=== PATIENT | female | born 1985 | race Caucasian/White ===

== ENCOUNTER 2024-05-29 00:27 | Emergency (ER) | payer OTHER ==
[2024-05-29] MEDS ORDERED: AZITHROMYCIN 250 MG TAB ONE (01:02)
[2024-05-29 01:06] LABS: Absolute Basophils 0.1 K/uL (0-0.5); Absolute Eosinophils 0.4 K/uL (0-0.5); Absolute Lymphocytes (CBC) 3.9 K/uL (0.7-4.9); Absolute Monocytes 0.9 K/uL (0.1-1.3); Absolute Neutrophil 5.5 K/uL (1.8-8.0); Basophils % 0.8 % (0-1.3); Eosinophils % 3.9 % (0-4.4); Hematocrit 37.4 % (36.0-45.0); Hemoglobin 12.7 g/dL (12.0-15.0); Lymphocytes % 35.6 % (15.3-44.8); MCH 27.1 pg (27.0-35.0); MCHC 33.9 g/dL (32.0-36.0); MCV 79.9 fL (80-100); MPV 7.4 fL (7.6-11.3); Monocytes % 8.5 % (3.3-12.3); Neutrophils % 51.2 % (41.7-73.7); Nucleated Red Blood Cells % 0.1 % (0-0); Platelets 242 thou/uL (152-406); RBC Red Blood Cell Count 4.68 M/uL (3.86-4.86); Red Cell Distribution Width 15.4 % (12.1-15.2)
[2024-05-29 01:26] LABS: Anion Gap 9.6 mEq/L (5.0-15.0); Potassium 3.6 mEq/L (3.5-5.1)
--- NOTE | 2024-05-29 01:37 | ER ---
Nurse's Notes [facility] Name: Magda Encinas Age: 38 yrs Sex: Female : 1985 Arrival Date: 05/29/2024 Time: 00:27 Bed 4 Private MD: Diagnosis: Chronic sinusitis, unspecified;Allergic contact dermatitis due to drugs in contact with skin Presentation: 05/29 00:44 Chief complaint: Patient states: I think I may be having an allergic reaction. I have bm8 been taking benadryl but it doesn't seem to be getting any better. My cough is so much worse than normal. Coronavirus screen: Vaccine status: Patient reports being unvaccinated. At this time, the client does not indicate any symptoms associated with coronavirus-19. Ebola Screen: Patient negative for fever greater than or equal to 101.5 degrees Fahrenheit, and additional compatible Ebola Virus Disease symptoms Patient denies exposure to infectious person. Patient denies travel to an Ebola-affected area in the 21 days before illness onset. No symptoms or risks identified at this time. Initial Sepsis Screen: Does the patient meet any 2 criteria? No. Patient's initial sepsis screen is negative. Does the patient have a suspected source of infection? No. Patient's initial sepsis screen is negative. Risk Assessment: Do you want to hurt yourself or someone else? Patient reports no desire to harm self or others. Onset of symptoms was May 26, 2024. 00:44 Method Of Arrival: Ambulatory bm8 00:44 Acuity: PAT 3 bm8 Triage Assessment: 00:46 General: Appears in no apparent distress. uncomfortable, Behavior is calm, cooperative, bm8 appropriate for age. Pain: Complains of pain in chest Pain currently is 6 out of 10 on a pain scale. EENT: No deficits noted. No signs and/or symptoms were reported regarding the EENT system. Neuro: No deficits noted. Level of Consciousness is awake, alert, obeys commands, Oriented to person, place, time, situation, Appropriate for age. Cardiovascular: Reports chest pain, from cough Heart tones S1 S2 present Capillary refill < 3 seconds in bilateral fingers Patient's skin is warm and dry. Respiratory: Reports cough that is non-productive, persistent pain with cough Airway is patent Trachea midline Respiratory effort is even, unlabored, Respiratory pattern is regular, symmetrical, Breath sounds are clear bilaterally. GI: No signs and/or symptoms were reported involving the gastrointestinal system. : No signs and/or symptoms were reported regarding the genitourinary system. Derm: Rash noted that is itchy, red, raised, urticaria, on chest, abdomen, right arm and left arm Parent/caregiver reports the patient having burning, itching. Musculoskeletal: No signs and/or symptoms reported regarding the musculoskeletal system. 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 - Infectious Disease History:: Denies. - Social history:: Smoking status: Patient/guardian denies using alcohol, street drugs. Screenin: [facility] ED Fall Risk Assessment (Adult) History of falling in the last 3 months, bm8 including since admission No falls in past 3 months (0 pts) Confusion or Disorientation No (0 pts) Intoxicated or Sedated No (0 pts) Impaired Gait Yes (1 pt) Mobility Assist Device Used Yes (1 pt) Altered Elimination No (0 pt) Score/Fall Risk Level 0 - 2 = Low Risk Oriented to surroundings, Maintained a safe environment, Educated pt \\T\\ family on fall prevention, incl call for assistance when getting out of bed, Assessed \\T\\ reinforced patient's understanding of fall precautions, Hourly rounding (assess needs \\T\\ fall precautionary measures) done, Used ambulatory aids as needed (educated on \\T\\ assisted with), Used gait belt as appropriate. Abuse screen: Denies threats or abuse. Nutritional screening: No deficits noted. Tuberculosis screening: No symptoms or risk factors identified. Assessment: :57 Reassessment: Patient appears in no apparent distress at this time. Patient and/or bm8 family updated on plan of care and expected duration. Pain level reassessed. Patient is alert, oriented x 3, equal unlabored respirations, skin warm/dry/pink. Patient denies pain at this time. Patient states feeling better. Vital Signs: 00:44 BP 157 / 91; Pulse 82; Resp 19; Temp 97.7; Pulse Ox 99% ; Weight 156.49 kg; Height 5 bm8 ft. 4 in. ; Pain 6/10; 01:57 BP 103 / 53; Pulse 58; Resp 18; Temp 97.7; Pulse Ox 100% ; Pain 0/10; bm8 00:44 Body Mass Index 59.22 (156.49 kg, 162.56 cm) bm8 00:44 Pain Scale: Adult bm8 01:57 Pain Scale: Adult bm8 [place] Coma Score: 01:57 Eye Response: spontaneous(4). Motor Response: obeys commands(6). Verbal Response: bm8 oriented(5). Total: 15. ED Course: 00:30 Patient arrived in ED. [email or web address] 00:33 Fausto Bonilla MD is Attending Physician. ec2 00:44 Javier Arboleda, RN is Primary Nurse. bm8 00:46 Triage completed. bm8 00:46 Arm band placed on right wrist. bm8 00:52 Inserted saline lock: 20 gauge in left antecubital area, using aseptic technique. Blood vk collected. Flushed with 10 mL NS. 00:53 Initial lab(s) drawn, by me, sent to lab. vk 00:53 BNP Sent. vk 00:53 BMP Sent. vk 00:53 CBC with Diff Sent. vk 01:00 CXR XRAY In Process Unspecified. EDMS 01:57 Patient has correct armband on for positive identification. Bed in low position. Call bm8 light in reach. Side rails up X 1. Provided Education on: post er care. Client placed on continuous cardiac and pulse oximetry monitoring. NIBP monitoring applied. Pulse ox on. NIBP on. Door closed. Noise minimized. Warm blanket given. Pillow given. Verbal reassurance given. Head of bed elevated. 01:57 No provider procedures requiring assistance completed. IV discontinued, intact, bm8 bleeding controlled, No redness/swelling at site. Pressure dressing applied. Administered Medications: 00:49 CANCELLED (Physician Discretion): amoxicillin- mg PO once ec2 01:04 Drug: AZITHromycin PO 500 mg PO once Route: PO; bm8 01:59 Follow up: Response: No adverse reaction bm8 Medication: 01:57 VIS not applicable for this client. bm8 Outcome: 01:36 Discharge ordered by . [email or web address] 01:57 Discharged to home ambulatory, bm8 01:57 Condition: stable 01:57 Discharge instructions given to patient, family, Instructed on discharge instructions, follow up and referral plans. Demonstrated understanding of instructions, follow-up care, medications, Prescriptions given X 1, 01:59 Patient left the ED. bm8 Signatures: Dispatcher [employer] EDDeysi Bejarano [email or web address] Fausto Bonilla MD MD ec2 Janae Renee Brad, RN RN bm8
--- NOTE | 2024-05-29 01:37 | EDPHYS ---
Physician Documentation [facility] Name: Magda Encinas Age: 38 yrs Sex: Female : 1985 Arrival Date: 05/29/2024 Time: 00:27 Bed 4 Private MD: ED Physician Fausto Bonilla HPI: 05/29 00:49 This 38 yrs old Female presents to ER via Ambulatory with complaints of ec2 Cough, Chest Congestion. 00:49 Patient arrives today for chronic cough. Patient reports that she has a chronic cough, ec2 states that she was recently treated for sinus infection with azithromycin and had subsequently improved however has not worsened. No fevers or chills. Also reports a rash to the upper chest after applying Vicks vapor rub.. 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 - Infectious Disease History:: Denies. - Social history:: Smoking status: Patient/guardian denies using alcohol, street drugs. ROS: 00:50 Constitutional: as per hpi ec2 Exam: 00:50 Constitutional: GEN: NAD Head: atraumatic Eyes: EOMI Ears: External ears are ec2 normal. CV: regular rate LUNGS: no respiratory distress, no wheezes or rales or rhonchi. Frequent cough noted. ABD: non-distended SKIN: erythematous rash noted to the upper chest wall MSK: no evidence of trauma Vital Signs: 00:44 BP 157 / 91; Pulse 82; Resp 19; Temp 97.7; Pulse Ox 99% ; Weight 156.49 kg; Height 5 bm8 ft. 4 in. ; Pain 6/10; 01:57 BP 103 / 53; Pulse 58; Resp 18; Temp 97.7; Pulse Ox 100% ; Pain 0/10; bm8 00:44 Body Mass Index 59.22 (156.49 kg, 162.56 cm) bm8 00:44 Pain Scale: Adult bm8 01:57 Pain Scale: Adult bm8 [place] Coma Score: 01:57 Eye Response: spontaneous(4). Motor Response: obeys commands(6). Verbal Response: bm8 oriented(5). Total: 15. MDM: 00:41 Medical Screening Exam initiated ec2 00:51 Data reviewed: vital signs, nurses notes. ED course: Patient arrives today for ec2 evaluation of frequent cough and skin rash. Examination yields contact dermatitis on the upper chest wall, frequent cough with a reassuring cardiopulmonary examination otherwise. Will obtain lab work, chest x-ray and treat with azithromycin. Suspect sequela of patient's chronic cough, suspect contact dermatitis given recent contact with Vicks vapor rub to the upper chest wall.. 01:36 ED course: CBC reassuring, metabolic profile nonactionable, BNP minimally elevated. ec2 Chest x-ray shows no acute thoracic process. On reassessment patient remains well-appearing no acute distress. Will discharge home, will start the patient azithromycin given the patient's chronic sinusitis. Instructed patient on no longer use infective rub on her chest wall as I suspect contact dermatitis and this. Return precautions given.. 05/29 00:48 Order name: CBC with Diff; Complete Time: 01:34 ec2 05/29 00:48 Order name: BMP; Complete Time: :34 ec2 05/29 00:48 Order name: BNP; Complete Time: :34 ec2 05/29 00:48 Order name: CXR XRAY ec2 05/29 00:48 Order name: IV; Complete Time: 00:51 ec2 Administered Medications: 00:49 CANCELLED (Physician Discretion): amoxicillin-hvhanjnphtd719 mg PO once ec2 01:04 Drug: AZITHromycin PO 500 mg PO once Route: PO; bm8 01:59 Follow up: Response: No adverse reaction bm8 Disposition Summary: 05/29/24 01:36 Discharge Ordered Notes: Location: Home ec2 Condition: Stable ec2 Diagnosis - Chronic sinusitis, unspecified ec2 - Allergic contact dermatitis due to drugs in contact with skin ec2 Followup: ec2 - With: Private Physician - When: - Reason: Re-evaluation by your physician Discharge Instructions: - Discharge Summary Sheet ec2 - Contact Dermatitis ec2 Forms: - Medication Reconciliation Form ec2 - Antibiotic Education ec2 - Prescription Opioid Use ec2 - Patient Portal Instructions ec2 - Leadership Thank You Letter ec2 Prescriptions: - Zithromax Z-Jus 250 mg Oral Tablet - take 1 tablet ORAL route as directed for 5 days Day 1 - take two (2) tablets ec2 one time. Day 2, 3, 4 , 5 take one (1) tablet once daily.; 6 tablet; Refills: 0, Product Selection Permitted Signatures: Dispatcher [employer] EDVT Fausto Bonilla MD MD ec2 Javier Arboleda RN RN bm8 Corrections: (The following items were deleted from the chart) 00:49 00:49 Amoxicillin-Clavulanate PO 875 mg PO once ordered. ec2 ec2 00:51 00:50 Constitutional: GEN: NAD Head: atraumatic Eyes: EOMI Ears: External ears are ec2 normal. CV: regular rate LUNGS: no respiratory distress, no wheezes or rales or rhonchi. Frequent cough noted. ABD: non-distended SKIN: no evidence of rashes MSK: no evidence of trauma ec2
--- NOTE | 2024-05-29 02:05 | RAD REPORT ---
EXAM DESCRIPTION: Chest Single View CLINICAL HISTORY: 38 years Female, COUGH TECHNIQUE: 1 view (Single frontal view of the chest) COMPARISON: 06/28/2023 FINDINGS: LINES AND TUBES: None. CARDIOVASCULAR STRUCTURES: Normal heart size. No pulmonary venous congestion. LUNGS: No confluent areas of acute consolidation. PLEURA: No layering pleural effusions. No pneumothorax. BONES: No acute osseous abnormality of the thorax. IMPRESSION: 1. No acute cardiopulmonary disease. Electronically signed by: Mandeep Nguyen MD 05/29/2024 01:13 AM CDT RP N Due to temporary technical issues with the [employer] reporting system, reports are being westley d by the in-house radiologist without review as a courtesy to ensure prompt reporting. The interpreting radiologist is fully responsible for the content of the report. Transcribed Date/Time: 05/29/2024 2:05 AM
[2024-05-29 02:24] VITALS: TEMP 97.7
[2024-05-29 02:26] VITALS: BP 103/53; O2SAT 100
== END 2024-05-29 01:59 | disposition home or self-care (01) ==
LOC: ER 00:27
DX: J32.9 Chronic sinusitis, unspecified (principal); L23.3 Allergic contact dermatitis due to drugs in contact with skin
CPT/HCPCS: 36415; 71045; 80048; 83880; 85025; 99284

== ENCOUNTER 2024-12-28 10:17 | Emergency (ER) | payer OTHER ==
--- OUTSIDE RECORDS SUMMARY | 2024-12-28 10:26 | XMS REPORT | Continuity of Care Document ---
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 TABLET(S) BY MOUTH TWICE A DAY. Dara lambert Cholecalcif taylor (Vitamin D) 125 MCG (5000 UT) oral Capsule 2023-03 15:04: 49 Yes [id number] Take by mouth Twice a week. Dara lambert Trazodone HCl 100 MG oral Tablet 2023-03 15:04: 49 Yes [id number] 100mg QD Take 1 tablet (100 mg total) by mouth nightly as needed for sleep. Dara lambert Sucralfate 1 g oral Tablet 2023-03 15:04: 49 Yes [id number] 1g Q.5D Take 1 tablet (1 g total) by mouth 2 times daily. Dara lambert Crisaborole (Eucrisa) 2 % apply externally Ointment 2023-03 15:04: 49 Yes [id number] 1{appli cation} Q.5D Apply 1 Applicatio n topically 2 times daily. Dara lambert Triamcinolo ne Acetonide (KENALOG) 40 mg/mL 2023-03 15:04: 38 No [id number] 40mg Dara lambert Esomeprazol e Magnesium 40 MG oral Delayed Release Capsule 2023-03 00:00: 00 Yes [id number] 40mg Take 1 capsule (40 mg total) by mouth every morning (before breakfast) . Dara lambert Famotidine (Pepcid) 40 MG oral Tablet 2023-03 00:00: 00 Yes [id number] 40mg Q.5D Take 1 tablet (40 mg total) by mouth 2 times daily. Dara lambert Thyroid (Pillow Thyroid) 240 MG oral Tablet 2023-03 00:00: 00 Yes [id number] One pill every Friday through Friday and 1/2 tablet every Friday.. Dara lambert Cetirizine (ZYRTEC) 10 MG oral Tablet 2023-03 00:00: 00 Yes [id number] 10mg QD TAKE ONE (1) TABLET(S) BY MOUTH ONCE A DAY. Dara lambert Triamcinolo ne Acetonide (KENALOG) 40 mg/mL 2023-03 15:59: 58 No [id number] 40mg 40 mg, intramuscu lar, ONCE, On Fri01/06/24 at 1600, For 1 dose Dara lambert Famotidine (Pepcid) 40 MG oral Tablet 2023-03 00:00: 00 Yes [id number] 40mg Q.5D Take 1 tablet (40 mg total) by mouth 2 times daily. Dara lambert Esomeprazol e Magnesium 40 MG oral Delayed Release Capsule 2023-03 00:00: 00 Yes [id number] 40mg Take 1 capsule (40 mg total) by mouth every morning (before breakfast) . Dara lambert Cetirizine (ZyrTEC Allergy) 10 MG oral Tablet 2023-03 00:00: 00 Yes [id number] 10mg QD Take 1 tablet (10 mg total) by mouth daily. Dara lambert Benzonatate (Tessalon Perles) 100 MG oral Capsule 2023-03 00:00: 00 Yes [id number] 100mg Q.[id number] 3D Take 1 capsule (100 mg total) by mouth 3 times daily as needed for cough. Dara lambert Montelukast (SINGULAIR) 10 MG oral Tablet tablet Montelukast (SINGULAIR) 10 MG oral Tablet tablet 2023-03 00:00: 00 11-09 00:00 :00 No [id number] 10mg QD Take 1 tablet (10 mg total) by mouth nightly. Dara lambert predniSONE (DELTASONE) 10 MG oral tablet 2023-03 00:00: 00 02-04 00:00 :00 No [id number] One pill twice daily for 7 days then one pill daily for 7 days. Dara lambert Azithromyci n 250 MG oral Tablet 2023-03 00:00: 00 01-11 04:59 :00 No [id number] Take 2 tablets by mouth on day 1 then 1 tablet by mouth daily for 4 days thereafter .. Dara lambert Buprenorphi ne HCl-Naloxon e HCl 8-2 MG sublingual SL Tab 2023-03 0- 00:00: 00 Yes [id number] 1{tbl} Q.00508474 [id number] 3D Place 1 tablet under the tongue every 8 hours. Dara lambert Docusate Sodium 100 MG oral Capsule 2023-03 018 00:00: 00 Yes 100mg Q.5D take one (1) capsule(s) by mouth twice a day. Dara lambert Topiramate (Topamax) 25 MG oral Tablet 2023-0316 00:00: 00 Yes [id number] 50mg Q.5D Take 2 tablets (50 mg total) by mouth 2 times daily No driving. No alcohol. No operating machinery. . Dara lambert Pregabalin 100 MG oral Capsule 2023-03 00:00: 00 Yes [id number] 100mg Q.[id number] 3D take one (1) capsule(s) by mouth three times a day. Dara lambert Tizanidine HCl 4 MG oral Tablet 2023-03 00:00: 00 02-17 00:00 :00 No [id number] 4mg Q.26577823 [id number] 3D Take 1 tablet (4 mg total) by mouth every 8 hours as needed for muscle spasms. Dara lambert Cholecalcif taylor (Vitamin D) 125 MCG (5000 UT) oral Capsule 2023-03 14:32: 44 Yes [id number] Take by mouth Twice a week. Dara lambert Trazodone HCl 100 MG oral Tablet 2023-03 14:32: 44 Yes [id number] 100mg QD Take 1 tablet (100 mg total) by mouth nightly as needed for sleep. Dara lambert Sucralfate 1 g oral Tablet 2023-03 010 14:32: 44 Yes [id number] 1g Q.5D Take 1 tablet (1 g total) by mouth 2 times daily. Dara lambert Crisaborole (Eucrisa) 2 % apply externally Ointment 2023-03 14:32: 44 Yes [id number] 1{appli cation} Q.5D Apply 1 Applicatio n topically 2 times daily. Dara lambert levoFLOXaci n (Levaquin) 750 MG oral Tablet 2023-03 00:00: 00 01-05 00:00 :00 No [id number] 750mg QD Take 1 tablet (750 mg total) by mouth daily. Dara lambert Pseudoeph-B romphen-DM 30-2-10 MG/5ML oral Syrup 2023-03 00:00: 00 01-05 00:00 :00 No [id number] 10mL Q.25D Take 10 mL by mouth 4 times daily as needed. Dara lambert Buprenorphi ne HCl-Naloxon e HCl 8-2 MG sublingual SL Tab 12-08 00:00: 00 12-30 00:00 :00 No [id number] 1{tbl} Q.59430606 [id number] 3D Place 1 tablet under the tongue every 8 hours. Dara lambert Thyroid (Pillow Thyroid) 240 MG oral Tablet 12-05 00:00: 00 Yes [id number] 1{tbl} QD Take 1 tablet by mouth daily. Dara lambert Pregabalin 100 MG oral Capsule 11-25 00:00: 00 Yes [id number] 100mg Q.73187407 [id number] 3D take one (1) capsule(s) by mouth three times a day. Dara lambert Guaifenesin (Mucinex) 600 MG oral Tablet 12 Hour Sustained Release Guaifenesin (Mucinex) 600 MG oral Tablet 12 Hour Sustained Release 11-24 00:00: 00 Yes [id number] 1200mg Q.5D Take 2 tablets (1,200 mg total) by mouth 2 times daily. Dara lambert Pseudoeph-B romphen-DM 30-2-10 MG/5ML oral Syrup 11-24 00:00: 00 01-05 00:00 :00 No [id number] 10mL Q.25D Take 10 mL by mouth 4 times daily as needed. Dara lambert Benzonatate (Tessalon Perles) 100 MG oral Capsule 11-24 00:00: 00 01-05 00:00 :00 No [id number] 100mg Q.34546300 [id number] 3D Take 1 capsule (100 mg total) by mouth 3 times daily as needed for cough. Dara lambert Amoxicillin -Pot Clavulanate 875-125 MG oral Tablet 11-24 00:00: 00 12-21 00:00 :00 No [id number] 1{tbl} Q.5D Take 1 tablet by mouth 2 times daily. Dara lambert Ondansetron (ZOFRAN) 4 MG oral TABLET DISPERSIBLE 11-10 00:00: 00 Yes [id number] 4mg Q.47999709 [id number] 3D TAKE ONE (1) TABLET(S) BY MOUTH EVERY EIGHT HOURS NEEDED FOR NAUSEA. Dara lambert Dupilumab (Dupixent) 300 MG/2ML subcutaneou s Solution Pen-injecto r 11-05 16:17: 12 No 600mg Inject 600 mg into the skin once for 1 dose. Dara lambert Buprenorphi ne HCl-Naloxon e HCl 8-2 MG sublingual SL Tab 11-05 00:00: 00 Yes [id number] 1{tbl} Q.21009019 [id number] 3D Place 1 tablet under the tongue every 8 hours. Dara lambert Ondansetron (Zofran) 8 MG oral tablet 11-05 00:00: 00 01-05 00:00 :00 No [id number] 8mg Take 1 tablet (8 mg total) by mouth every 12 hours as needed for nausea. Dara lambert Dupilumab (Dupixent) 300 MG/2ML subcutaneou s Solution Pen-injecto r 11-04 11:12: 41 11-04 00:00 :00 No [id number] 300mg Inject 300 mg into the skin every other week. Dara lambert Fluticasone -Umeclidin- Vilant 100-62.5-25 MCG/ACT inhalation AEROSOL POWDER, BREATH ACTIVATED 11-04 11:06: 13 11-04 00:00 :00 No 1{puff} QD Inhale 1 puff into the lungs daily. Dara lambert Cholecalcif taylor (Vitamin D) 125 MCG (5000 UT) oral Capsule 11-04 10:05: 28 Yes [id number] Take by mouth Twice a week. Dara lambert Trazodone HCl 100 MG oral Tablet 11-04 10:05: 28 Yes [id number] 100mg QD Take 1 tablet (100 mg total) by mouth nightly as needed for sleep. Dara lambert Sucralfate 1 g oral Tablet 11-04 10:05: 28 Yes [id number] 1g Q.5D Take 1 tablet (1 g total) by mouth 2 times daily. Dara lambert Crisaborole (Eucrisa) 2 % apply externally Ointment 11-04 10:05: 28 Yes [id number] 1{appli cation} Q.5D Apply 1 Applicatio n topically 2 times daily. Dara lambert Docusate Sodium 100 MG oral Tablet 11-04 10:03: 35 11-04 00:00 :00 No [id number] 100mg QD Take 100 mg by mouth daily. Dara lambert Fluticasone -Salmeterol (Advair Diskus) 250-50 MCG/ACT inhalation AEROSOL POWDER, BREATH ACTIVATED Fluticasone -Salmeterol (Advair Diskus) 250-50 MCG/ACT inhalation AEROSOL POWDER, BREATH ACTIVATED 11-04 00:00: 00 Yes 1{puff} Q.5D Inhale 1 puff into the lungs 2 times daily. Dara lambert Albuterol (PROVENTIL) (2.5 MG/3ML) 0.083% inhalation Inhalant Solution Albuterol (PROVENTIL) (2.5 MG/3ML) 0.083% inhalation Inhalant Solution 11-04 00:00: 00 Yes 2.5mg Q.25D Take 2.5 mg by nebulizati on every 6 hours as needed. Dara lambert Dupilumab (Dupixent) 300 MG/2ML subcutaneou s Solution Pen-injecto r 11-04 00:00: 00 Yes 300mg Inject 300 mg into the skin every other week. Dara lambert Dupilumab (Dupixent) 300 MG/2ML subcutaneou s Solution Pen-injecto r 11-04 00:00: 00 03-08 00:00 :00 No 300mg Inject 300 mg into the skin every other week. Dara lambert Pregabalin (Lyrica) 100 MG oral Capsule 10-23 00:00: 00 Yes [id number] 100mg Q.87040945 [id number] 3D Take 1 capsule (100 mg total) by mouth 3 times daily No driving. No alcohol. No operating machinery. . Dara lambert Docusate Sodium 100 MG oral Capsule 10-23 00:00: 00 Yes 100mg Q.5D Take 1 capsule (100 mg total) by mouth 2 times daily. Dara lambert Ondansetron (Zofran) 8 MG oral tablet 10-23 00:00: 00 11-05 00:00 :00 No [id number] 8mg Take 1 tablet (8 mg total) by mouth every 12 hours as needed for nausea. Dara lambert Ondansetron (Zofran) 8 MG oral tablet 10-07 00:00: 00 Yes [id number] 8mg Take 1 tablet (8 mg total) by mouth every 12 hours as needed for nausea. Dara lambert Tizanidine HCl 4 MG oral Tablet 10-07 00:00: 00 12-30 00:00 :00 No [id number] 4mg Q.38439596 [id number] 3D Take 1 tablet (4 mg total) by mouth every 8 hours as needed for muscle spasms. Dara lambert Buprenorphi ne HCl-Naloxon e HCl 8-2 MG sublingual SL Tab 10-07 00:00: 00 11-05 00:00 :00 No [id number] 1{tbl} Q.60884106 [id number] 3D Place 1 tablet under the tongue every 8 hours. Draa lambert Pillow Thyroid 240 MG oral Tablet 10-05 00:00: 00 Yes [id number] 1{tbl} QD take one (1) tablet(s) by mouth once a day. Dara lambert predniSONE (DELTASONE) 10 MG oral tablet 09-28 00:00: 00 11-04 00:00 :00 No [id number] One pill twice daily for 5 days, then one pill daily for 5 days. Dara lambert Fluticasone -Umeclidin- Vilant 100-62.5-25 MCG/ACT inhalation AEROSOL POWDER, BREATH ACTIVATED 09-15 16:27: 18 Yes 1{puff} QD Inhale 1 puff into the lungs daily. Dara lambert Triamcinolo ne Acetonide 0.1 % apply externally Cream 09-15 00:00: 00 Yes [id number] 1{appli cation} Q.5D Apply 1 Applicatio n topically 2 times daily Apply small amount to affected area daily as needed. Dara lambert Benzonatate (Tessalon Perles) 100 MG oral Capsule 09-15 00:00: 00 11-24 00:00 :00 No [id number] 100mg Q.92551775 [id number] 3D Take 1 capsule (100 mg total) by mouth 3 times daily as needed for cough. Dara lambert Doxycycline Hyclate 100 MG oral Tablet 09-10 00:00: 00 12-21 00:00 :00 No [id number] 100mg Q.5D Take 1 tablet (100 mg total) by mouth 2 times daily. Dara lambert Pseudoeph-B romphen-DM 30-2-10 MG/5ML oral Syrup 09-10 00:00: 00 11-24 00:00 :00 No [id number] 10mL Q.25D Take 10 mL by mouth 4 times daily as needed. Dara lambert Fluticasone -Salmeterol (Advair Diskus) 100-50 MCG/ACT inhalation AEROSOL POWDER, BREATH ACTIVATED 09-10 00:00: 00 09-15 00:00 :00 No [id number] 1{puff} Q.5D Inhale 1 puff into the lungs 2 times daily. Dara lambert methylPREDN ISolone 4 MG oral Tablet Therapy Pack 09-10 00:00: 00 09-15 00:00 :00 No [id number] 1{jus} Take 1 jus by mouth See Admin Instructio ns Use as directed. Dara lambert Triamcinolo ne Acetonide 0.1 % apply externally Cream 09-10 00:00: 00 09-15 00:00 :00 No [id number] Apply small amount to affected area daily as needed. Dara lambert Esomeprazol e Magnesium 40 MG oral Delayed Release Capsule 09-09 00:00: 00 01-05 00:00 :00 No [id number] 40mg Take 1 capsule (40 mg total) by mouth every morning (before breakfast) . Dara lambert Famotidine (Pepcid) 40 MG oral Tablet 09-09 00:00: 00 01-05 00:00 :00 No [id number] 40mg Q.5D Take 1 tablet (40 mg total) by mouth 2 times daily. Dara lambert Buprenorphi ne HCl-Naloxon e HCl 8-2 MG sublingual SL Tab 08-28 00:00: 00 10-07 00:00 :00 No [id number] 1{tbl} Q.08644412 [id number]D Place 1 tablet under the tongue every 8 hours. Dara lambert Dupilumab (Dupixent) 300 MG/2ML subcutaneou s Solution Pen-injecto r 08-24 13:13: 49 Yes [id number] 300mg Inject 300 mg into the skin every other week. Dara lambert Cholecalcif taylor (Vitamin D) 125 MCG (5000 UT) oral Capsule 08-24 13:13: 49 Yes [id number] Take by mouth Twice a week. Dara lambert Esomeprazol e Magnesium 40 MG oral Delayed Release Capsule 08-24 13:13: 49 Yes [id number] 40mg Take 1 capsule (40 mg total) by mouth every morning (before breakfast) . Dara lambert Famotidine (Pepcid) 40 MG oral Tablet 08-24 13:13: 49 Yes [id number] 40mg Take 1 tablet (40 mg total) by mouth 2 times daily. Dara lambert Trazodone HCl 100 MG oral Tablet 08-24 13:13: 49 Yes [id number] 100mg QD Take 1 tablet (100 mg total) by mouth nightly as needed for sleep. Dara lambert Docusate Sodium 100 MG oral Tablet 08-24 13:13: 49 Yes [id number] 100mg QD Take 100 mg by mouth daily. Dara lambert Sucralfate 1 g oral Tablet 08-24 13:13: 49 Yes [id number] 1g Q.5D Take 1 tablet (1 g total) by mouth 2 times daily. Dara lambert Crisaborole (Eucrisa) 2 % apply externally Ointment 08-24 13:13: 49 Yes [id number] 1{appli cation} Q.5D Apply 1 Applicatio n topically 2 times daily. Dara lambert Pregabalin (Lyrica) 100 MG oral Capsule 08-24 00:00: 00 Yes [id number] 100mg Q.69921362 [id number] 3D Take 1 capsule (100 mg total) by mouth 3 times daily No driving. No alcohol. No operating machinery. . Dara lambert Buprenorphi ne HCl-Naloxon e HCl 8-2 MG sublingual SL Tab 08-24 00:00: 00 Yes [id number] 1{tbl} Place 1 tablet under the tongue every 8 hours. Dara lambert Ondansetron (ZOFRAN) 4 MG oral TABLET DISPERSIBLE 08-24 00:00: 00 Yes [id number] 4mg Q.83967919 [id number] 3D Take 1 tablet (4 mg total) by mouth every 8 hours as needed for nausea. Dara lambert Thyroid 240 MG oral Tablet 08-13 00:00: 00 Yes [id number] 1{tbl} QD Take 1 tablet by mouth daily. Dara lambert Ondansetron (Zofran) 8 MG oral tablet 08-13 00:00: 00 10-07 00:00 :00 No [id number] 8mg Take 1 tablet (8 mg total) by mouth every 12 hours as needed for nausea. Dara lambert Pregabalin 75 MG oral Capsule 08-06 00:00: 00 08-24 00:00 :00 No [id number] 75mg Take 1 capsule (75 mg total) by mouth 3 times daily. Dara lambert Ondansetron (Zofran) 8 MG oral tablet 07-23 00:00: 00 Yes [id number] 8mg Take 1 tablet (8 mg total) by mouth every 12 hours as needed for nausea. Dara lambert Cetirizine (ZyrTEC Allergy) 10 MG oral Tablet 07-23 00:00: 00 01-05 00:00 :00 No [id number] 10mg QD Take 1 tablet (10 mg total) by mouth daily. Dara lambert Montelukast (SINGULAIR) 10 MG oral Tablet tablet 07-23 00:00: 01-05 00:00 :00 No [id number] 10mg QD Take 1 tablet (10 mg total) by mouth nightly. Dara lambert Nystatin (Nystatin) [id number] UNIT/ML mouth/throa t Suspension 07-23 00:00: 00 07-31 04:59 :00 No [id number] 924992T Take 5 mL (500,000 units total) by mouth 3 times daily for 7 days Swish and swallow. Dara lambert Thyroid 240 MG oral Tablet 07-06 00:00: 00 Yes [id number] 1{tbl} Take 1 tablet by mouth daily. Dara lambert Azithromyci n (Zithromax) 250 MG oral Tablet 07-03 00:00: 00 11-24 00:00 :00 No [id number] 250mg Take 1 tablet (250 mg total) by mouth three times a week. Dara lambert Benzonatate (Tessalon Perles) 100 MG oral Capsule 07-03 00:00: 00 09-15 00:00 :00 No [id number] 100mg Q.08037136 [id number] 3D Take 1 capsule (100 mg total) by mouth 3 times daily as needed for cough. Dara lambert Fluticasone -Salmeterol 250-50 MCG/ACT inhalation AEROSOL POWDER, BREATH ACTIVATED 07-03 00:00: 00 09-15 00:00 :00 No [id number] 1{puff} Q.5D Inhale 1 puff into the lungs 2 times daily. Dara lambert Famotidine (Pepcid) 40 MG oral Tablet 07-02 16:57: 47 07-02 00:00 :00 No [id number] 40mg Take 1 tablet (40 mg total) by mouth 2 times daily. Dara lambert Fluticasone -Umeclidin- Vilant (Trelegy Ellipta) 200-62.5-25 MCG/ACT inhalation AEROSOL POWDER, BREATH ACTIVATED 07-02 15:40: 47 07-02 00:00 :00 No Inhale into the lungs. Dara lambert Ondansetron (Zofran) 8 MG oral tablet 07-02 15:39: 25 07-23 00:00 :00 No [id number] 8mg Q.57334882 [id number] 3D Take 1 tablet (8 mg total) by mouth every 12 hours as needed for nausea. Dara lambert Crisaborole (Eucrisa) 2 % apply externally Ointment 07-02 15:36: 15 Yes [id number] 1{appli cation} Apply 1 Applicatio n topically 2 times daily. Dara lambert Sucralfate 1 g oral Tablet 07-02 15:35: 41 Yes [id number] 1g Take 1 tablet (1 g total) by mouth 2 times daily. Dara lambert Docusate Sodium 100 MG oral Tablet 07-02 15:34: 41 Yes [id number] 100mg Take 100 mg by mouth daily. Dara lambert Trazodone HCl 100 MG oral Tablet 07-02 15:32: 49 Yes [id number] 100mg QD Take 1 tablet (100 mg total) by mouth nightly as needed for sleep. Dara lambert Cetirizine (ZyrTEC Allergy) 10 MG oral Tablet 07-02 15:30: 52 07-23 00:00 :00 No [id number] 10mg Take 1 tablet (10 mg total) by mouth daily. Dara lambert Montelukast (SINGULAIR) 10 MG oral Tablet tablet 07-02 15:30: 27 07-23 00:00 :00 No [id number] 10mg Take 1 tablet (10 mg total) by mouth nightly. Dara lambert Esomeprazol e Magnesium 40 MG oral Delayed Release Capsule 07-02 15:25: 14 Yes [id number] 40mg Take 1 capsule (40 mg total) by mouth every morning (before breakfast) . Dara lambert Dupilumab (Dupixent) 300 MG/2ML subcutaneou s Solution Pen-injecto r 07-02 15:09: 18 Yes [id number] 300mg Inject 300 mg into the skin every other week. Dara lambert Cholecalcif taylor (Vitamin D) 125 MCG (5000 UT) oral Capsule 07-02 15:09: 18 Yes [id number] Take by mouth Twice a week. Dara lambert Buprenorphi ne 5 MCG/HR transdermal PATCH WEEKLY 07-02 15:: 07-23 00:00 :[id number] onto the skin. Dara lambert Fluticasone -Salmeterol (Advair Diskus) 250-50 MCG/ACT inhalation AEROSOL POWDER, BREATH ACTIVATED 07-02 00:00: 00 Yes [id number] 1{puff} Inhale 1 puff into the lungs 2 times daily. Dara lambert Tizanidine HCl 4 MG oral Tablet 07-02 00:00: 00 10-07 00:00 :00 No [id number] 4mg Q.99532801 [id number] 3D Take 1 tablet (4 mg total) by mouth every 8 hours as needed for muscle spasms. Dara lambert Thyroid (Pillow Thyroid) 240 MG oral Tablet 07-02 00:00: 00 07-02 00:00 :00 No [id number] 1{tbl} Take 1 tablet by mouth daily. Dara lambert Pregabalin 75 MG oral Capsule 07-02 00:00: 00 07-02 00:00 :00 No [id number] 75mg Take 1 capsule (75 mg total) by mouth 3 times daily. Dara lambert Albuterol HFA 108 (90 Base) MCG/ACT IN AERS Albuterol HFA 108 (90 Base) MCG/ACT IN AERS 06-29 00:00: 00 Yes [id number] Dara lambert Promethazin e-DM 6.25-15 MG/5ML oral Syrup 06-29 00:00: 00 01-05 00:00 :00 No [id number] TAKE FIVE (5) ML(S) BY MOUTH EVERY SIX HOURS NEEDED FOR COUGH. Dara lambert levoFLOXaci n 750 MG oral Tablet 06-29 00:00: 00 07-23 00:00 :00 No [id number] TAKE ONE (1) TABLET(S) BY MOUTH DAILY FOR SEVEN DAYS. Dara lambert methylPREDN ISolone 4 MG oral Tablet Therapy Pack 06-29 00:00: 00 07-23 00:00 :00 No [id number] USE DIRECTED BY PACKAGE INSTRUCTBETTY DUBOIS. Dara lambert Immunizations Ordered Immunization Name Filled Immunization Name Date Status Comments Source AFLURIA TRIVALENT MDV AFLURIA TRIVALENT MDV 2024-03-15 00:00:00 Completed Dara Mendoza - External Tdap- (Boostrix, Adacel) Tdap- (Boostrix, Adacel) 2024-03-15 00:00:00 Completed Dara Mendoza - External AFLURIA TRIVALENT MDV Unknown Completed Dara Seybold - External Tdap- (Boostrix, Adacel) Unknown Completed Dara ybold - External AFLURIA TRIVALENT MDV Unknown Completed Dara Seybold - External Tdap- (Boostrix, Adacel) Unknown Completed Dara Seybold - External AFLURIA TRIVALENT MDV Unknown Completed Dara ybold - External Tdap- (Boostrix, Adacel) Unknown Completed Dara Seybold - External AFLURIA TRIVALENT MDV Unknown Completed Dara Seybold - External Tdap- (Boostrix, Adacel) Unknown Completed Dara Seybold - External AFLURIA TRIVALENT MDV Unknown Completed Dara Seybold - External Tdap- (Boostrix, Adacel) Unknown Completed Dara Seybold - External AFLURIA TRIVALENT MDV Unknown Completed Draa Seybold - External Tdap- (Boostrix, Adacel) Unknown Completed Dara Seybold - External AFLURIA TRIVALENT MDV Unknown Completed aDra Seybold - External Tdap- (Boostrix, Adacel) Unknown Completed Dara Seybold - External Vital Signs Vital Name Observation Time Observation Value Comments S ource Systolic blood pressure 2024-11-09 15:09:00 140 mm[Hg] machine average Dara Seybold - External Diastolic blood pressure 2024-11-09 15:09:00 84 mm[Hg] machine average Dara Seybold - External Body weight 2024-11-09 15:05:00 145.151 kg Dara Seybold - External BMI 2024-11-09 15:05:00 54.93 kg/m2 Dara Seybold - External Oxygen saturation in Arterial blood by Pulse oximetry 2024-11-09 15:05:00 99 /min Dara Seybold - External Heart rate 2024-11-09 15:05:00 76 /min Dara Seybold - External Body temperature 2024-11-09 15:05:00 37.11 Paula Dara Seybold - External Respiratory rate 2024-11-09 15:05:00 24 /min Dara Seybold - External Body height 2024-11-09 15:05:00 162.6 cm Dara Seybold - External Heart rate 2024-10-06 20:03:00 64 /min Dara Seybold - External Body temperature 2024-10-06 20:03:00 37.22 Paula Dara Seybold - External Respiratory rate 2024-10-06 20:03:00 22 /min Dara Seybold - External Body height 2024-10-06 20:03:00 162.6 cm Dara Seybold - External Body weight 2024-10-06 20:03:00 145.151 kg Dara Seybold - External BMI 2024-10-06 20:03:00 54.93 kg/m2 Dara Seybold - External Oxygen saturation in Arterial blood by Pulse oximetry 2024-10-06 20:03:00 100 /min Dara Seybold - External Systolic blood pressure 2024-09-02 18:14:00 94 mm[Hg] Dara Seybold - External Diastolic blood pressure 2024-09-02 18:14:00 64 mm[Hg] Dara Seybold - External Heart rate 2024-09-02 18:14:00 72 /min Dara Seybold - External Respiratory rate 2024-09-02 18:14:00 24 /min Dara Seybold - External Body height 2024-09-02 18:14:00 162.6 cm Dara Seybold - External Body weight 2024-09-02 18:14:00 139.799 kg Dara Seybold - External BMI 2024-09-02 18:14:00 52.90 kg/m2 Dara Sandraybold - External Oxygen saturation in Arterial blood by Pulse oximetry 2024-09-02 18:14:00 94 /min Dara Seybold - External Systolic blood pressure 2024-08-13 16:55:00 132 mm[Hg] Dara Seybold - External Diastolic blood pressure 2024-08-13 16:55:00 72 mm[Hg] Dara Seybold - External Heart rate 2024-08-13 16:55:00 66 /min Dara Seybold - External Body temperature 2024-08-13 16:55:00 36.17 Paula Dara Seybold - External Respiratory rate 2024-08-13 16:55:00 20 /min Dara Seybold - External Body height 2024-08-13 16:55:00 162.6 cm Dara Seybold - External Body weight 2024-08-13 16:55:00 145.968 kg Dara Seybold - External BMI 2024-08-13 16:55:00 55.24 kg/m2 Dara Sandraybold - External Oxygen saturation in Arterial blood by Pulse oximetry 2024-08-13 16:55:00 98 /min Dara Seybold - External Systolic blood pressure 2024-05-07 20:48:00 128 mm[Hg] Dara Seybold - External Diastolic blood pressure 2024-05-07 20:48:00 80 mm[Hg] Dara Seybold - External Heart rate 2024-05-07 20:48:00 70 /min Dara Seybold - External Body temperature 2024-05-07 20:48:00 36.28 Paula Dara Seybold - External Respiratory rate 2024-05-07 20:48:00 20 /min Dara Seybold - External Body height 2024-05-07 20:48:00 162.6 cm Dara Seybold - External Body weight 2024-05-07 20:48:00 147.328 kg Dara Seybold - External BMI 2024-05-07 20:48:00 55.75 kg/m2 Dara Seybold - External Oxygen saturation in Arterial blood by Pulse oximetry 2024-05-07 20:48:00 99 /min Dara Seybold - External Systolic blood pressure 2024-02-18 13:59:00 117 mm[Hg] Dara Seybold - External Diastolic blood pressure 2024-02-18 13:59:00 78 mm[Hg] Dara Seybold - External Heart rate 2024-02-18 13:59:00 62 /min Dara Seybold - External Body temperature 2024-02-18 13:59:00 36.44 Paula Dara Seybold - External Respiratory rate 2024-02-18 13:59:00 62 /min Dara Seybold - External Body height 2024-02-18 13:59:00 162.6 cm Dara Seybold - External Body weight 2024-02-18 13:59:00 144.244 kg Dara Seybold - External BMI 2024-02-18 13:59:00 54.58 kg/m2 Dara Seybold - External Oxygen saturation in Arterial blood by Pulse oximetry 2024-02-18 13:59:00 99 /min Dara Seybold - External Systolic blood pressure 2024-02-10 17:44:00 126 mm[Hg] Dara Seybold - External Diastolic blood pressure 2024-02-10 17:44:00 72 mm[Hg] Dara Seybold - External Heart rate 2024-02-10 17:44:00 78 /min Dara Seybold - External Body temperature 2024-02-10 17:44:00 36.94 Paula Dara Seybold - External Respiratory rate 2024-02-10 17:44:00 18 /min Dara Seybold - External Body height 2024-02-10 17:44:00 162.6 cm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
[2024-12-28] MEDS ORDERED: HYDROCODONE/CHLORPHEN 5 ML/OSYR ONE (10:40)
[2024-12-28] MEDS ORDERED: ALBUTEROL 2.5 MG/3 ML NEB SOL ONE (10:40)
[2024-12-28] MEDS ORDERED: IPRATROPIUM BROM 0.5MG/2.5ML ONE (10:40)
[2024-12-28 11:11] LABS: Influenza A Ag Negative; Influenza B Ag Negative; SARS-CoV-2 Antigen Rapid Res Negative (Negative)
--- NOTE | 2024-12-28 12:27 | RAD REPORT ---
EXAMINATION: ONE VIEW CHEST XR CLINICAL INDICATION: COUGH TECHNIQUE: Frontal chest projection is submitted. Examination is limited by patient positioning and t echnique. COMPARISON: 05/29/2024 FINDINGS: The lungs are well inflated and clear. The heart is upper limit of normal in size. No displaced fract ures identified. IMPRESSION: No acute intrathoracic abnormalities.
--- NOTE | 2024-12-28 12:41 | ER ---
Nurse's Notes [facility] Name: Magda Encinas Age: 39 yrs Sex: Female : 1985 Arrival Date: 12/28/2024 Time: 10:17 Bed 12 Private MD: Diagnosis: Cough Presentation: 12/28 10:30 Chief complaint: Patient states: COUGH, CONGESTION AND SORE THROAT DIZZINESS WITH db COUGHING SPELLS. Coronavirus screen: Client denies travel out of the [place] in the last 14 days. Client presents with at least one sign or symptom that may indicate coronavirus-19. Standard/surgical mask placed on the client. Ebola Screen: Patient negative for fever greater than or equal to 101.5 degrees Fahrenheit, and additional compatible Ebola Virus Disease symptoms Patient denies exposure to infectious person. Patient denies travel to an Ebola-affected area in the 21 days before illness onset. No symptoms or risks identified at this time. Initial Sepsis Screen: Does the patient meet any 2 criteria? No. Patient's initial sepsis screen is negative. Does the patient have a suspected source of infection? No. Patient's initial sepsis screen is negative. Risk Assessment: Do you want to hurt yourself or someone else? Patient reports no desire to harm self or others. Onset of symptoms was December 28, 2024. 10:30 Method Of Arrival: Ambulatory db 10:30 Acuity: PAT 4 db Triage Assessment: 10:33 General: Appears in no apparent distress. uncomfortable, Behavior is calm, cooperative. db Pain: Complains of pain in neck. EENT: Reports nasal congestion. Neuro: Level of Consciousness is awake, alert, obeys commands, Oriented to person, place, time, situation. Historical: - Allergies: 10:32 Ceclor; db 10:32 Sulfa (Sulfonamide Antibiotics); db 10:32 Macrobid; db - PMHx: 10:32 RARE LUNG TISSURE DISEASE; db 10:33 NEUROPATHY; db - Immunization history:: Adult Immunizations unknown. - Infectious Disease History:: Denies. - Social history:: Smoking status: Patient denies any tobacco usage or history of. Screenin:39 [facility] ED Fall Risk Assessment (Adult) History of falling in the last 3 months, db including since admission No falls in past 3 months (0 pts) Confusion or Disorientation No (0 pts) Intoxicated or Sedated No (0 pts) Impaired Gait No (0 pts) Mobility Assist Device Used No (0 pt) Altered Elimination No (0 pt) Score/Fall Risk Level 0 - 2 = Low Risk Oriented to surroundings, Maintained a safe environment. Abuse screen: Denies threats or abuse. Denies injuries from another. Nutritional screening: No deficits noted. Tuberculosis screening: No symptoms or risk factors identified. Assessment: 10:53 Reassessment: Patient appears in no apparent distress at this time. Patient and/or iw family updated on plan of care and expected duration. Pain level reassessed. Patient is alert, oriented x 3, equal unlabored respirations, skin warm/dry/pink. General: Appears in no apparent distress. Behavior is calm, cooperative. Neuro: Level of Consciousness is awake, alert, obeys commands, Oriented to person, place, time, situation. Respiratory: Reports cough that is Airway is patent Respiratory effort is even, unlabored, Breath sounds are clear. 13:39 Reassessment: Patient appears in no apparent distress at this time. Patient and/or db family updated on plan of care and expected duration. Pain level reassessed. Patient is alert, oriented x 3, equal unlabored respirations, skin warm/dry/pink. 13:40 EENT: Throat. db Vital Signs: 10:30 BP 139 / 95; Pulse 78; Resp 18; Temp 98.5; Pulse Ox 99% ; Weight 158.76 kg; Height 5 db ft. 5 in. ; 13:39 BP 136 / 88; Pulse 78; Resp 18; Pulse Ox 99% on R/A; db 10:30 Body Mass Index 58.24 (158.76 kg, 165.1 cm) db ED Course: 10:22 Patient arrived in ED. al6 10:24 Erika Gold FNP-C is [facility]. kb 10:24 Colin Gracia MD is Attending Physician. kb 10:32 Triage completed. db 10:34 Arm band placed on left wrist. db 10:44 Flu and/or RSV swab sent to lab. Strep swab sent to lab. iw 10:53 Chrissie Ugarte, RN is Primary Nurse. iw 10:54 Patient has correct armband on for positive identification. Bed in low position. Call iw light in reach. Side rails up X 1. Pulse ox on. Pillow given. 12:22 Chest Single View XRAY In Process Unspecified. EDMS 13:39 Provided Education on: DISCHARGE. db 13:39 No provider procedures requiring assistance completed. Patient did not have IV access db during this emergency room visit. Administered Medications: 10:35 Drug: Tussionex Pennkinetic ER PO Suspension 5 ml PO once Route: PO; iw 13:40 Follow up: Response: No adverse reaction db 10:40 Drug: Albuterol Inhalation 2.5 mg Inhalation once Route: Inhalation; iw 13:40 Follow up: Response: No adverse reaction db 10:40 Drug: Ipratropium Inhalation Aerosol 0.5 mg Inhalation once Route: Inhalation; iw 13:40 Follow up: Response: No adverse reaction db Medication: 13:39 VIS not applicable for this client. db Outcome: 12:40 Discharge ordered by . kb 13:39 Discharged to home ambulatory, db 13:39 Condition: stable 13:39 Discharge instructions given to patient, Instructed on discharge instructions, follow up and referral plans. Prescriptions given X 1, 13:40 Patient left the ED. db Signatures: Dispatcher [employer] EDMS Erika Gold, SHUTTLE FITTING SUPERVISOR-C SHUTTLE FITTING SUPERVISOR-Ckb Chrissie Ugarte, RN RN iw Rafaela Thorpe, RN RN db Sherry Cruz Corrections: (The following items were deleted from the chart) 10:33 10:30 BP 151 / 115; Pulse 78bpm; Resp 18bpm; Pulse Ox 99%; Temp 98.5F; 158.76 kg; db Height 5 ft. 5 in.; BMI: 58.2; db
--- NOTE | 2024-12-28 12:41 | EDPHYS ---
Physician Documentation [facility] Name: Magda Encinas Age: 39 yrs Sex: Female : 1985 Arrival Date: 12/28/2024 Time: 10:17 Bed 12 Private MD: ED Physician Colin Garcia HPI: 12/28 10:26 This 39 yrs old Female presents to ER via Unassigned with complaints of Cough, Sore kb Throat, Dizziness. 10:26 Pt is a 39 year old female who presents for cough that started 2.5-3 weeks ago. Had a kb telemed visit on Friday and was started on steroids and zithromax. States she just started the steroid today because she had misplaced them. Denies fever. Reports the cough is causing dizziness and near syncope. Historical: - Allergies: 10:32 Ceclor; db 10:32 Sulfa (Sulfonamide Antibiotics); db 10:32 Macrobid; db - PMHx: 10:32 RARE LUNG TISSURE DISEASE; db 10:33 NEUROPATHY; db - Immunization history:: Adult Immunizations unknown. - Infectious Disease History:: Denies. - Social history:: Smoking status: Patient denies any tobacco usage or history of. ROS: 10:29 Constitutional: As per HPI kb Exam: 12:39 Constitutional: This is a well developed, well nourished patient who is awake, alert, kb and in no acute distress. Head/Face: Normocephalic, atraumatic. ENT: Moist Mucous membranes Cardiovascular: Regular rate Respiratory: Respirations even and unlabored. No increased work of breathing. Talking in full sentences Skin: Warm, dry with normal turgor. Normal color. MS/ Extremity: Pulses equal, no cyanosis. Neurovascular intact. Full, normal range of motion. Neuro: Awake and alert, GCS 15, oriented to person, place, time, and situation. Vital Signs: 10:30 BP 139 / 95; Pulse 78; Resp 18; Temp 98.5; Pulse Ox 99% ; Weight 158.76 kg; Height 5 db ft. 5 in. ; 13:39 BP 136 / 88; Pulse 78; Resp 18; Pulse Ox 99% on R/A; db 10:30 Body Mass Index 58.24 (158.76 kg, 165.1 cm) db MDM: 10:24 Medical Screening Exam initiated kb 12:39 Differential Diagnosis: Bronchitis Influenza Upper Respiratory Infection Pneumonia. kb Data reviewed: vital signs, nurses notes. I considered the following discharge prescriptions or medication management in the emergency department I discussed and recommended Over The Counter medications, Antibiotics: At this time antibiotics are not recommended. Counseling: I had a detailed discussion with the patient and/or guardian regarding the historical points, exam findings, and any diagnostic results supporting the discharge/admit diagnosis, lab results, radiology results, the need for outpatient follow up, a family practitioner, to return to the emergency department if symptoms worsen or persist or if there are any questions or concerns that arise at home. 12:39 Independent interpretation of the following test(s) in the Emergency Department X-Ray: kb My interpretation is no pneumonia. 12/28 10:31 Order name: COVID-19 Ag + Flu A+B Ag; Complete Time: 11:11 kb 12/28 10:31 Order name: Group A Streptococcus Rapid; Complete Time: 11:10 kb 12/28 11:09 Order name: Throat Culture EDLA 12/28 10:31 Order name: Chest Single View XRAY; Complete Time: 12:29 kb Administered Medications: 10:35 Drug: Tussionex Pennkinetic ER PO Suspension 5 ml PO once Route: PO; iw 13:40 Follow up: Response: No adverse reaction db 10:40 Drug: Albuterol Inhalation 2.5 mg Inhalation once Route: Inhalation; iw 13:40 Follow up: Response: No adverse reaction db 10:40 Drug: Ipratropium Inhalation Aerosol 0.5 mg Inhalation once Route: Inhalation; iw 13:40 Follow up: Response: No adverse reaction db Disposition: 16:07 Co-signature as Attending Physician, Colin Garcia MD I reviewed the patient's care rn provided by the Advanced Practice Provider and agree with the diagnosis and treatment plan. Disposition Summary: 12/28/24 12:40 Discharge Ordered Notes: Location: Home kb Condition: Stable kb Diagnosis - Cough kb Followup: kb - With: Emergency Department - When: As needed - Reason: Worsening of condition Followup: kb - With: Private Physician - When: 2 - 3 days - Reason: Recheck today's complaints, Continuance of care, Re-evaluation by your physician Discharge Instructions: - Discharge Summary Sheet kb - Cough, Adult, [id number] kb Forms: - Medication Reconciliation Form kb - Antibiotic Education kb - Prescription Opioid Use kb - Patient Portal Instructions kb - Leadership Thank You Letter kb Prescriptions: - Tessalon Perles 100 mg Oral Capsule - take 1 capsule ORAL route every 8 hours As needed; 15 capsule; Refills: 0, kb Product Selection Permitted Signatures: Dispatcher [employer] Erika Velazco, RICHARD CARROLL-Chrissie Martinez RN RN iw Nieto, Roman, MD MD rn Benton, Danielle, RN RN db
[2024-12-28 21:58] VITALS: TEMP 98.5; O2SAT 99
[2024-12-28 22:00] VITALS: BP 136/88
== END 2024-12-28 13:40 | disposition home or self-care (01) ==
LOC: ER 10:17
DX: R05.9 Cough, unspecified (principal); R42 Dizziness and giddiness; Z11.52 Encounter for screening for COVID-19
CPT/HCPCS: 87070; 36415; 71045; 99284; 87428; J7613; J7644